=== PATIENT | male | born 1990 | race Two or more races ===

== ENCOUNTER 2019-08-31 23:25 | Emergency (ER) | payer OTHER ==
[~2019-08-31] VITALS: Ht 162.6 cm; Wt 68.0 kg
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
[2019-08-31 23:34] VITALS: BP 126/87
--- NOTE | 2019-08-31 23:34 | NUR ---
ED Nurse Note: ERMD at pt bedside performing lac repair
[2019-08-31] MEDS ORDERED: Neosporin Oint Ud Pkt TOPIC ONE (23:45)
[2019-08-31] MEDS ORDERED: Tetanus/Diptheria/Pertussis IM ONE (23:45)
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
--- NOTE | 2019-08-31 23:57 | NUR ---
ED Nurse Note: ER DISCHARGE NOTE: Patient is cleared to be discharged and booked per ERMD, pt is aox4, on room air, with stable vital signs. police officers wre given instructions, pt was able to verbalize understanding, pt id band removed without complications. pt is able to ambulate with steady gait. pt took all belongings.
[2019-08-31 23:58] VITALS: BP 126/87
== END 2019-08-31 23:57 ==
LOC: EMR 23:57
DX: S81.811A Laceration without foreign body, right lower leg, initial encounter (principal); Z23 Encounter for immunization; W25.XXXA Contact with sharp glass, initial encounter; Y92.9 Unspecified place or not applicable
CPT/HCPCS: 90471; 90715; 99283